=== PATIENT | male | born 1935 | race Caucasian/White ===

== ENCOUNTER 2017-11-12 04:56 | Inpatient (IN) | payer MEDICARE ==
[2017-11-12] VITALS (54 sets, daily range): BP systolic 68–158; BP diastolic 24–80
[~2017-11-12] VITALS: Ht 175.3 cm; Wt 77.6 kg
--- NOTE | 2017-11-12 04:56 | NUR ---
Maintained patent airway on patient. RT at bedside for CPAP inh. Dr Burns at bedside to evaluate patient. HOB elevated. Placed patient on tele monitor and pulse ox.
--- NOTE | 2017-11-12 04:56 | NUR ---
PT BIB RA 39 WITH A C/O SOB. PT ARRIVED ON C-PAP AND WAS TAKEN TO ROOM #13. PT IS TACHYPNEIC AND RESTLESS. PT APPEARS TO BE TRIPODING, ANXIOUS, RHALES NOTED BILATERALLY AND DIMINISHED. 1 SPRAY NITRO GIVEN IN THE FIELD.
--- NOTE | 2017-11-12 04:57 | NUR ---
started a saline lock on the rac g18, blood drawn and sent to lab.
--- NOTE | 2017-11-12 05:10 | NUR ---
CALLING NURSING FLATWORK PRESSER FOR ICU BED, RESP FAILURE.
--- NOTE | 2017-11-12 05:20 | NUR ---
trade embalmer at bedside for cxr.
--- NOTE | 2017-11-12 05:22 | NUR ---
Rt Abel at bedside to draw abg.
[2017-11-12 05:23] LABS: HEMATOCRIT 37 % (39-51); HEMOGLOBIN 12.3 g/dL (13.5-17.5); LYMPHOCYTES # (AUTO) 0.4 /CMM (0.8-4.8); LYMPHOCYTES % (AUTO) 4.1 % (20.0-44.0); MEAN CORPUSCULAR HEMOGLOBIN 31 PG (26.0-33.0); MEAN CORPUSCULAR HGB CONC 33 g/dl (31.0-36.0); MEAN CORPUSCULAR VOLUME 92 fL (80-96); MONOCYTES # (AUTO) 0.6 /CMM (0.1-1.30); MONOCYTES % (AUTO) 6.1 % (2.0-12.0); NEUTROPHILS # (AUTO) 8.3 /CMM (1.8-8.9); NEUTROPHILS % (AUTO) 89.8 % (43.0-81.0); PLATELET COUNT (AUTO) 275 /CMM (150-450); RDW COEFFICIENT OF VARIATION 15.1 (11.5-15.0); WHITE BLOOD COUNT (AUTO) 9.3 K/uL (4.3-11.0)
[2017-11-12] MEDS ORDERED: AMIODARONE 150 MG/3 ML VIAL IV ONE ×4 (05:25→06:00)
--- NOTE | 2017-11-12 05:30 | NUR ---
started patient on Amiodarone 150mg bolus per Dr Burns's orders. Patient noted with afib rvr on monitor.
[2017-11-12 05:32] LABS: ABG BASE EXCESS -0.9 mmol/L; ABG OXYGEN SATURATION 98.8 % (92.0-98.5); ABG PCO2 34.1 mmHg (35.0-45.0); ABG PO2 203.6 mmHg (75.0-100.0); AaDO2 475.3 mmHg; MetHb 0.5 % (0.0-1.5); O2Hb 98.3 % (94.0-97.0); PEEP,BG 10 cm H2O; SITE, ABG Right Brachial; VENT MODE, BG S/T 18 20/10 100%
[2017-11-12 05:35] LABS: CALCIUM, SERUM 9.4 mg/dL (8.5-10.1); CARBON DIOXIDE 29 mmol/L (21-32); CHLORIDE 99 mmol/L (98-107); CREATININE 0.9 mg/dL (0.6-1.3); GLUCOSE 114 mg/dL (74-106); POTASSIUM 4.8 mmol/L (3.5-5.1); SODIUM SERUM 137 mmol/L (136-145); UREA NITROGEN, BLOOD 34 mg/dL (7-18)
[2017-11-12 05:38] LABS: INR 1.07 (0.87-1.13)
[2017-11-12 05:45] LABS: TROPONIN I 3.056 ng/mL (0.00-0.056)
[2017-11-12] MEDS ORDERED: MAGN2400 PO (05:46)
[2017-11-12] MEDS ORDERED: ZINC220T PO (05:46)
[2017-11-12] MEDS ORDERED: CRAN3875 PO (05:46)
[2017-11-12] MEDS ORDERED: DOCU-141 PO (05:46)
[2017-11-12] MEDS ORDERED: CRAN425C6 PO (05:46)
[2017-11-12] MEDS ORDERED: QUET25TA PO (05:46)
[2017-11-12] MEDS ORDERED: PANT40TA2 PO (05:46)
[2017-11-12] MEDS ORDERED: ASPI-605 PO (05:46)
[2017-11-12] MEDS ORDERED: LEVE500T9 PO (05:46)
[2017-11-12] MEDS ORDERED: METO25TA6 PO (05:46)
[2017-11-12] MEDS ORDERED: MULT-1185 PO (05:46)
[2017-11-12] MEDS ORDERED: DEXA1TAB2 PO (05:46)
[2017-11-12] MEDS ORDERED: ASCO500C18 PO (05:46)
[2017-11-12] MEDS ORDERED: TAMS-12 PO (05:46)
[2017-11-12] MEDS ORDERED: MYRBETRIQ ER PO (05:46)
[2017-11-12] MEDS ORDERED: SIMV10TA2 PO (05:46)
[2017-11-12] MEDS ORDERED: TYL2T PO (05:46)
[2017-11-12] MEDS ORDERED: AMLO5TAB2 PO (05:46)
[2017-11-12] MEDS ORDERED: LISI2.5T2 PO (05:46)
--- NOTE | 2017-11-12 05:47 | NUR ---
CALLING REPORT TO RODRIGUE SEYMOUR
[2017-11-12 05:48] LABS: ALANINE AMINOTRANSFERASE 89 U/L (12-78); ALBUMIN 2.4 g/dL (3.4-5.0); ALKALINE PHOSPHATASE 139 U/L (46-116); ASPARTATE AMINOTRANSFERASE 56 U/L (15-37); B-TYPE NATRIURETIC PEPTIDE 5484 PG/ML (0-125); BILIRUBIN,DIRECT 0.2 mg/dL (0.0-0.2); BILIRUBIN,TOTAL 0.6 mg/dL (0.2-1.0); TOTAL PROTEIN, SERUM 6.5 g/dL (6.4-8.2)
--- NOTE | 2017-11-12 05:48 | NUR ---
PT PLACED ON BIPAP RATE 16 IPAP 20 EPAP 10. ABG WAS DONE AND IS INFORMED OF RESULTS. PT SP02 92%. WILL CONT TO MONITOR PT.
[2017-11-12] MEDS ORDERED: ACETAMINOPHEN 650 MG/SUPP.RECT RC ONE ×2 (05:52→06:00)
[2017-11-12] MEDS ORDERED: PIPERACILLIN /TAZOBACTAM 3.375 G VIAL IV ONE (05:52)
--- NOTE | 2017-11-12 05:53 | NUR ---
started patient at this time on amiodarone drip at 1mg/min, noted afib rvr hr 150-170's.
[2017-11-12] MEDS ORDERED: ACETAMINOPHEN 325 MG TABLET PO PRN (06:00)
[2017-11-12] MEDS ORDERED: ASPIRIN 300 MG/SUPP.RECT RC ONE ×2 (06:00→06:11)
[2017-11-12] MEDS ORDERED: IV NS 0.9% 500 ML BAG IV ONE (06:00)
[2017-11-12] MEDS ORDERED: ACETAMINOPHEN 650 MG/SUPP.RECT RC PRN (06:00)
[2017-11-12] MEDS ORDERED: PIPERACILLIN /TAZOBACTAM 3.375 G in IV D5W 50 ML IV ONE (06:00)
[2017-11-12] MEDS ORDERED: NOREPINEPHRINE 8 MG in IV D5W 500 ML IV PRN (06:00)
[2017-11-12] MEDS ORDERED: ONDANSETRON HCL/PF 4 MG/2 ML VIAL IVP PRN (06:00)
--- NOTE | 2017-11-12 06:10 | NUR ---
Transferred patient to ICU bed via als protocol, no incident noted. Patient remained alert and responsive.
[2017-11-12] MEDS ORDERED: IV NS 0.9% 1,000 ML BAG IV PRN ×2 (06:30→07:00)
[2017-11-12] MEDS: ENOXAPARIN SODIUM 30 MG/0.3 ML DISP.SYRIN SQ SCH (06:42)
--- NOTE | 2017-11-12 07:06 | NUR ---
WATER CONSERVATIONIST. RECEIVED THE PT FROM ER VIA RNEY. ROOM 252,FOR RESPIRATORY FAILURE. PT AWAKE, CONFUSED,,AGITATED, RESTRAINT INITIATED FROM ER. BIPAP ON SETTINGS 20/10,RATE 16, FIO2 100%. HOB ELEVATED. BUYER RENTER SHOWING UNCONTROLLED AFIB. AMIODARONE 1MCG/MIN, STARTED FROM ER. LT HAND SKIN TEAR, PICTURE TAKEN. WILL CONTINUE TO MONITOR.
[2017-11-12] MEDS ORDERED: IV NS 0.9% 1,000 ML IV PRN (07:18)
[2017-11-12] MEDS ORDERED: AMIODARONE 900 MG in IV D5W 500 ML IV PRN (07:30)
[2017-11-12] MEDS ORDERED: PHENYLEPHRINE 20 MG in IV D5W 250 ML IV PRN (07:30)
[2017-11-12 07:43] LABS: MAGNESIUM 1.8 mg/dL (1.8-2.4); PHOSPHORUS 3.6 mg/dL (2.5-4.9)
[2017-11-12] MEDS: MULTIVITAMINS,THERAGRAN 1 UDTAB TABLET PO SCH (09:00)
[2017-11-12] MEDS: ZINC SULFATE 220 MG CAPSULE PO SCH (09:00)
[2017-11-12] MEDS: ASCORBIC ACID 500 MG TABLET PO SCH (09:00)
[2017-11-12] MEDS ORDERED: PHENYLEPHRINE 80 MG in IV NS 0.9% 250 ML IV PRN (09:00)
[2017-11-12] MEDS: QUETIAPINE FUMARATE 25 MG TABLET PO SCH ×3 (09:00→16:22)
[2017-11-12] MEDS: DOCUSATE SODIUM 100 MG CAPSULE PO SCH ×2 (09:00→16:22)
[2017-11-12] MEDS ORDERED: LISINOPRIL (5MG) 5 MG TABLET PO SCH (09:00)
[2017-11-12] MEDS ORDERED: AMLODIPINE BESYLATE 5 MG TABLET PO SCH (09:00)
[2017-11-12] MEDS: ASPIRIN 81 MG TAB.CHEW PO SCH (09:00)
[2017-11-12] MEDS ORDERED: METOPROLOL TARTRATE 25 MG TABLET PO SCH (09:00)
[2017-11-12] MEDS: DEXAMETHASONE 1 MG TABLET PO SCH ×2 (09:00→16:22)
[2017-11-12] MEDS ORDERED: ASPIRIN EC 81 MG TABLET.DR PO SCH (09:00)
[2017-11-12] MEDS ORDERED: LEVETIRACETAM SOL (5 ML) 100 MG/ML UDC PO SCH (09:00)
[2017-11-12] MEDS ORDERED: MULTIVITAMIN LIQ 5 ML UDC PO SCH (09:00)
[2017-11-12] MEDS: PANTOPRAZOLE 40 MG VIAL IV SCH (09:08)
[2017-11-12] MEDS: OXCARBAZEPINE 150 MG TABLET PO SCH ×2 (10:59→16:22)
[2017-11-12] MEDS: LEVETIRACETAM SOL (5 ML) 100 MG/ML UDC PO SCH ×2 (10:59→20:59)
[2017-11-12] MEDS: PIPERACILLIN /TAZOBACTAM 3.375 G in IV D5W 50 ML IV SCH ×3 (11:00→23:46)
[2017-11-12] MEDS: DIGOXIN INJ 0.5 MG/2 ML AMPUL IV SCH ×3 (11:01→23:47)
[2017-11-12] MEDS ORDERED: PIPERACILLIN /TAZOBACTAM 2.25 G in IV NS 0.9% 50 ML IV SCH (13:00)
[2017-11-12] MEDS: IPRATROPIUM NEB FS 0.5 MG/2.5 ML AMPUL.NEB NEB SCH ×2 (13:44→19:48)
--- NOTE | 2017-11-12 13:47 | NUR ---
MILLINERY SALESPERSON NOTE 0720: Received patient awake, alert but confused. On Bipap, Sat 100%, will titrate O2. TG PIVs intact. Noted patient with agitation. On SENIOR ART DIRECTOR restraints for episodes of removing lines and Bipap mask. LUE with skin tears, Mepilex in place. S/E by Dr. Gutierrez, aware for the trop, no new order at this time. On Lovenox. 0830: Placed patient on mask 10LPM still 100%, p[laced on 4LPM of O2 via NC tolerated, Sat >93. Will continue to monitor. Nemo, daughter at bedside, updated and aware for the plan of care. Inserted condom cath for I&O monitoring. 1000: With SBP 70's, obtained order from Dr. Schroeder for PICC insertion. for possible use of pressors. Nemo, daughter at bedside given consent. 1100: S/E by ST for risk of aspiration, may give ice chips and water per request when off Bipap. Trop 1200: Followed up with Dr. Fox for PICC, SBP goes 70's at times. Will maintain on 20mcg, awaiting PICC line. Started on 0.5 Amio drip, started @ 0600 for 1mg. 1300: FRANCK PICC done by Dr. Fox, awaiting CXR. 1345: CXR shows PICC FRANCK in good position. Placed Amio drip, Yuriy and IVF in PICC line.
--- NOTE | 2017-11-12 18:55 | NUR ---
DENTAL LABORATORY MANAGER NOTE No any significant changes. Turned off Yuriy @ 1600. Remained on 2LPM of O2 via NC. Kept clean, warm and dry. Needs attended.
--- NOTE | 2017-11-12 20:00 | NUR ---
ICING MACHINE OPERATOR NOTE Received patient sleeping easily awakened.Oriented to name otherwise disoriented/confused. Reoriented.Fall precaution implemented with side rails up x 3 and bed low and locked and alarm on. Kept call light in his hand.Afib controlled 70's-80's per monitor with Amiodarone gtt infusing to FRANCK PICC LINE site intact.Patient on 2L NC on sating 100%and respiration even and unlabored.Remain on NPO status with maintenance ivf infusing.Urine output adequate per FC.No signs of pain noted.Turned and repositioned.
[2017-11-12] MEDS: SIMVASTATIN 10 MG TABLET PO SCH (21:43)
[2017-11-12] MEDS: TAMSULOSIN 0.4 MG CAP.SR.24H PO SCH (21:43)
[2017-11-12] MEDS: IV NS 0.9% 1,000 ML IV PRN (21:56)
[2017-11-13] VITALS (20 sets, daily range): BP systolic 92–135; BP diastolic 44–78
[2017-11-13] MEDS: IPRATROPIUM NEB FS 0.5 MG/2.5 ML AMPUL.NEB NEB SCH ×4 (02:07→19:48)
[2017-11-13] MEDS: PIPERACILLIN /TAZOBACTAM 3.375 G in IV D5W 50 ML IV SCH ×3 (06:00→17:43)
[2017-11-13] MEDS: ENOXAPARIN SODIUM 30 MG/0.3 ML DISP.SYRIN SQ SCH (06:01)
--- NOTE | 2017-11-13 06:30 | NUR ---
Patient awake and alert now oriented x 3.VS stable.Afib controlled 80's.Denies chest pain or sob. AM done.Turned and repositioned.Amiodarone gtt off.Call light within easy reach for safety.All due medications administered.
--- NOTE | 2017-11-13 07:45 | NUR ---
ICU/RN - Initial Notes Received pt in bed awake, alert and oriented x 2-3. No acute distress. Respirations are even and unlabored. On o2 @ 2lpm via nasal cannula. Denies pain or discomfort. PICC line to FRANCK patent and intact with IVF infusing well. Davison catheter intact draining urine to gravity. Safety and comfort measures in place. Will continue to monitor pt closely.
[2017-11-13] MEDS: QUETIAPINE FUMARATE 25 MG TABLET PO SCH ×3 (08:22→16:24)
[2017-11-13] MEDS: DOCUSATE SODIUM 100 MG CAPSULE PO SCH ×2 (08:22→16:24)
[2017-11-13] MEDS: ASPIRIN 81 MG TAB.CHEW PO SCH (08:22)
[2017-11-13] MEDS: DEXAMETHASONE 1 MG TABLET PO SCH ×2 (08:22→16:24)
[2017-11-13] MEDS: ASCORBIC ACID 500 MG TABLET PO SCH (08:22)
[2017-11-13] MEDS: ZINC SULFATE 220 MG CAPSULE PO SCH (08:22)
[2017-11-13] MEDS: PANTOPRAZOLE 40 MG VIAL IV SCH (08:22)
[2017-11-13] MEDS: OXCARBAZEPINE 150 MG TABLET PO SCH ×2 (08:22→16:24)
[2017-11-13] MEDS: MULTIVITAMINS,THERAGRAN 1 UDTAB TABLET PO SCH (08:22)
[2017-11-13] MEDS: LEVETIRACETAM SOL (5 ML) 100 MG/ML UDC PO SCH ×2 (08:23→21:29)
[2017-11-13] MEDS: AMIODARONE HCL 200 MG TABLET PO SCH ×3 (09:47→21:33)
[2017-11-13] MEDS: IV NS 0.9% 1,000 ML IV PRN (09:48)
[2017-11-13] MEDS: DIGOXIN 0.25 MG TABLET PO SCH (12:49)
--- NOTE | 2017-11-13 14:54 | NUR ---
HHN DEFERRED AT THIS TIME. ZERO DISTRESS NOTED. FAMILY REQUESTED NOT TO WAKE PT.
--- NOTE | 2017-11-13 16:45 | NUR ---
ICU/RN - Transfer Pt transferred to [facility] 112-2 per ACLS protocol in stable condition. Pt's daughter at bedside and aware of transfer. Report given to RODRIGUE Guillaume for continuity of care.
--- NOTE | 2017-11-13 16:50 | NUR ---
RN NOTES RECEIVED PT IN ROOM 112-2, FROM ICU , PT IS A/Ox2-3, ON 2 L O2 N/C , RESPIRATION EVEN AND UNLABORED, ON TELE HR IN 90'S A.ALLISON, MARTINEZ DRAINING TO GRAVITY WITH YELLOW , NS AT 75CC/HR RUNNING VIA R UPPER ARM PICC LINE , SITE CDI, SR UP x3, CALL LIGHT WITHIN EASY REACH, BED LOCKED AND IN LOWEST POSITION , CONTINUE TO MONITOR
--- NOTE | 2017-11-13 18:53 | NUR ---
RN NOTES PT STABLE , NO CHANGES NOTED , WILL ENDORSE TO TRANSMISSION SUPERVISOR NURSE FOR NAFISA.
--- NOTE | 2017-11-13 19:30 | NUR ---
[facility]/RN NOTES: Received pt in bed sleeping but easily arousable. alert and oriented x 1-2. No acute distress. on tele monitor afib.Respirations are even and unlabored. On o2 @ 2lpm via n/c sat 97 %. no facial grimaces or moaning noted. Denies pain or discomfort. PICC line to FRANCK patent and intact w/ no s/s of infection/infiltration noted. with IVF infusing well. Davison catheter intact and patent draining urine via gravity. Safety and comfort measures in place. Will continue to monitor pt closely.
[2017-11-13] MEDS: TAMSULOSIN 0.4 MG CAP.SR.24H PO SCH (21:29)
[2017-11-13] MEDS: SIMVASTATIN 10 MG TABLET PO SCH (21:29)
[2017-11-14] VITALS: BP 112/47
[2017-11-14] MEDS: IV NS 0.9% 1,000 ML IV PRN ×2 (00:01→12:52)
[2017-11-14] MEDS ORDERED: PIPERACILLIN /TAZOBACTAM 3.375 G VIAL IV ONE ×2 (00:10→04:54)
[2017-11-14] MEDS: PIPERACILLIN /TAZOBACTAM 3.375 G in IV D5W 50 ML IV SCH ×4 (00:13→17:09)
[2017-11-14] MEDS: IPRATROPIUM NEB FS 0.5 MG/2.5 ML AMPUL.NEB NEB SCH ×4 (01:33→19:47)
[2017-11-14 04:00] VITALS: BP 120/62
[2017-11-14] MEDS: AMIODARONE HCL 200 MG TABLET PO SCH ×3 (05:10→20:50)
[2017-11-14 07:06] LABS: HEMATOCRIT 31 % (39-51); HEMOGLOBIN 10.6 g/dL (13.5-17.5); LYMPHOCYTES # (AUTO) 0.2 /CMM (0.8-4.8); LYMPHOCYTES % (AUTO) 2.3 % (20.0-44.0); MEAN CORPUSCULAR HEMOGLOBIN 31 PG (26.0-33.0); MEAN CORPUSCULAR HGB CONC 34 g/dl (31.0-36.0); MEAN CORPUSCULAR VOLUME 91 fL (80-96); MONOCYTES # (AUTO) 0.3 /CMM (0.1-1.30); MONOCYTES % (AUTO) 4.3 % (2.0-12.0); NEUTROPHILS # (AUTO) 7.4 /CMM (1.8-8.9); NEUTROPHILS % (AUTO) 93.4 % (43.0-81.0); PLATELET COUNT (AUTO) 174 /CMM (150-450); RDW COEFFICIENT OF VARIATION 14.7 (11.5-15.0); RED BLOOD CELL COUNT(AUTO) 3.38 MIL/uL (4.5-6.0); WHITE BLOOD COUNT (AUTO) 7.9 K/uL (4.3-11.0)
[2017-11-14 07:22] LABS: ALANINE AMINOTRANSFERASE 45 U/L (12-78); ALBUMIN 1.6 g/dL (3.4-5.0); ALKALINE PHOSPHATASE 92 U/L (46-116); ASPARTATE AMINOTRANSFERASE 23 U/L (15-37); BILIRUBIN,TOTAL 0.6 mg/dL (0.2-1.0); CALCIUM, SERUM 8.9 mg/dL (8.5-10.1); CARBON DIOXIDE 26 mmol/L (21-32); CHLORIDE 103 mmol/L (98-107); CREATININE 0.7 mg/dL (0.6-1.3); GLUCOSE 122 mg/dL (74-106); MAGNESIUM 1.7 mg/dL (1.8-2.4); PHOSPHORUS 2.4 mg/dL (2.5-4.9); POTASSIUM 4.3 mmol/L (3.5-5.1); SODIUM SERUM 137 mmol/L (136-145); TOTAL PROTEIN, SERUM 5.1 g/dL (6.4-8.2); UREA NITROGEN, BLOOD 24 mg/dL (7-18)
[2017-11-14 07:29] LABS: TROPONIN I 1.727 ng/mL (0.00-0.056)
--- NOTE | 2017-11-14 07:30 | NUR ---
[facility]/RN AM NOTES: PT IN BED, ASLEEP, AROUSES EASLIY TO NAME AND TOUCH, AO X 1-2, ON 2L O2 NC, NOT IN ANY DISTRESS, NO SOB, TELEMETRY READS AFIB HR 78, DENIES ANY CHEST PAINS, FRANCK PICC LINE WITH NS AT 75 ML/HR INFUSING WELL, RT WRIST G 18 FLUSHES WELL, BOTH SITES CLEAR, MARTINEZ CATH IN PLACE, DRAINING ADEQUATE AMOUNT OF YELLOW COLORED URINE, SEE NURSING FLOWSHEET FOR SKIN ISSUES. SAFETY MEASURES IN PLACE, BED LOW LOCKED, WILL CONTINUE TO MONITOR.
--- NOTE | 2017-11-14 07:39 | NUR ---
[facility]/RN NOTES: NO ACUTE CHANGES NOTED DURING THIS SHIFT. REPORT GIVEN TO AM NURSE FOR NAFISA.
[2017-11-14 08:00] VITALS: BP 122/64
--- NOTE | 2017-11-14 08:57 | NUR ---
MS RN NOTES DC TELEMETRY PER DR. MCCARTY
[2017-11-14] MEDS ORDERED: FERROUS SULFATE (325 MG) 325 MG/TAB TABLET PO SCH (09:00)
--- NOTE | 2017-11-14 09:30 | NUR ---
MS RN NOTES DUE MEDS GIVEN
[2017-11-14] MEDS: PANTOPRAZOLE 40 MG VIAL IV SCH (09:46)
[2017-11-14] MEDS: DOCUSATE SODIUM 100 MG CAPSULE PO SCH ×2 (09:47→17:08)
[2017-11-14] MEDS: ASCORBIC ACID 500 MG TABLET PO SCH (09:47)
[2017-11-14] MEDS: ZINC SULFATE 220 MG CAPSULE PO SCH (09:48)
[2017-11-14] MEDS: QUETIAPINE FUMARATE 25 MG TABLET PO SCH ×3 (09:48→17:06)
[2017-11-14] MEDS: LEVETIRACETAM SOL (5 ML) 100 MG/ML UDC PO SCH ×2 (09:48→20:49)
[2017-11-14] MEDS: MULTIVITAMINS,THERAGRAN 1 UDTAB TABLET PO SCH (09:49)
[2017-11-14] MEDS: DEXAMETHASONE 1 MG TABLET PO SCH ×2 (09:49→17:12)
[2017-11-14] MEDS: ASPIRIN 81 MG TAB.CHEW PO SCH (09:49)
[2017-11-14] MEDS: OXCARBAZEPINE 150 MG TABLET PO SCH ×2 (09:49→17:13)
[2017-11-14] MEDS: Magnesium 1GM/D5W 100ML PREMIX 100 ML IV SCH ×2 (11:54→12:48)
--- NOTE | 2017-11-14 11:54 | NUR ---
MS RN NOTES MAGNESIUM BAG #1 STARTED. ZOSYN IV STARTED. SPEECH THERAPIST AT BEDSIDE FOR SWALLOW EVAL. PASSED. CHANGED DIET TO GROUND MOIST AND NECTAR THICKENED LIQUID FOR LUNCH.DAUGHTER AT BEDSIDE.
[2017-11-14] MEDS ORDERED: K PHOS NEUTRAL 250 MG TABLET PO ONE (12:00)
--- NOTE | 2017-11-14 12:04 | NUR ---
WOUND CARE CONSULT WOUND CARE RECEIVED CONSULT FOR LUE DISCOLORATIONS WITH SKIN TEARS. WOUND CARE WILL DEFER TO SURGICAL TEAM FOR CONSULT AND TREATMENT PLANS. PATIENT WITH CURRENT RUCHI AT 14, ALL PRESSURE ULCER PREVENTION MEASURES NOTED TO BE IN PLACE AT THIS TIME.
[2017-11-14] MEDS ORDERED: Z GUARD REMEDY 2 OZ OINT TP PRN (12:30)
--- NOTE | 2017-11-14 12:48 | NUR ---
MS RN NOTES MAGNESIUM BAG #2 STARTED.
[2017-11-14] MEDS: DIGOXIN 0.25 MG TABLET PO SCH (12:49)
[2017-11-14] MEDS: Z GUARD REMEDY 2 OZ OINT TP SCH (12:50)
[2017-11-14] MEDS ORDERED: SOD FERRIC GLUC 125 MG in IV NS 0.9% 100 ML IV SCH (14:00)
--- NOTE | 2017-11-14 14:29 | NUR ---
MS RN NOTES STARTED EDWARDIT IV.
[2017-11-14 16:00] VITALS: BP 125/60
--- NOTE | 2017-11-14 17:09 | NUR ---
MS RN NOTES ZOSYN IV STARTED.
--- NOTE | 2017-11-14 18:42 | NUR ---
MS RN NOTES: PT IN BED RESTING COMFORTABLY, EYES CLOSED, AROUSES TO NAME AND TOUCH, AO X 1-2, ON 2L O2 NC, NOT IN ANY DISTRESS, NO SOB, DENIES ANY CHEST PAINS, FRANCK PICC LINE WITH NS AT 75 ML/HR INFUSING WELL, RT WRIST G 18 FLUSHES WELL, BOTH SITES CLEAR, MARTINEZ CATH IN PLACE, DRAINING ADEQUATE AMOUNT OF YELLOW COLORED URINE, 600 ML OUTPUT. PM CARE DONE, PERFORMED PRESCRIBED WOUND TREATMENT. TURNED AND REPOSITIONED Q 2HOURS. SAFETY MEASURES IN PLACE, BED LOW LOCKED, CALL LIGHT WITHIN REACH, ALL NEEDS MET, NO OTHER SIGNIFICANT CHANGE IN CONDITION. WILL ENDORSE TO NEXT SHIFT FOR NAFISA.
--- NOTE | 2017-11-14 19:30 | NUR ---
MR CABRAL IS COMPLAINING ABOUT HE HAS TO GO "PEE" NOTED THE CATHERE SIZE 14 AND NOTED LITTLE DRAINAGE COMING OUT, IRRIGATED WITH 60 ML NS AND AT 1ST ATTEMPT THE MARTINEZ CATH WAS CLOGGED, SLOWLY HAND IRRIGATED IN ATTEMPT TO UNCLOG, AND WAS SUCCSESSFULL . US CLEAR YELLOW AND MS. CABRAL COMMENTED HE FELT BETTER 500 ML OBTAINED. FED HIM PART OF HIS DINNER SWALLOWS W/O PROBLEM THICKENED LIQUID
[2017-11-14] MEDS: SIMVASTATIN 10 MG TABLET PO SCH (21:40)
[2017-11-14] MEDS: TAMSULOSIN 0.4 MG CAP.SR.24H PO SCH (21:40)
[2017-11-14 21:46] VITALS: BP_SYST 147; BP_SYST 160; BP_DIAS 80
[2017-11-14 22:00] VITALS: BP 147/93
[2017-11-15] MEDS: PIPERACILLIN /TAZOBACTAM 3.375 G in IV D5W 50 ML IV SCH ×3 (00:14→12:13)
[2017-11-15] MEDS: IPRATROPIUM NEB FS 0.5 MG/2.5 ML AMPUL.NEB NEB SCH ×3 (01:48→13:34)
[2017-11-15 02:17] VITALS: BP 133/78
[2017-11-15] MEDS: IV NS 0.9% 1,000 ML IV PRN (03:40)
[2017-11-15 05:13] VITALS: BP 124/68
--- NOTE | 2017-11-15 05:36 | NUR ---
MARTINEZ CATH CONTINUED TO DRAIN CLEAR YELLOW URINE PATIENT WOKE UP EARLIER AND TOLD ME "GOOD JOB, THANK YOU" HE WAS MEANING THAT I WAS ABLE TO GET HIS CATHETER TO DRAIN MR. CABRAL SLEPT THROUGH THE NIGHT SOUNDLY FREQ CHECKING ON HIS MARTINEZ TO BE SURE IT REMAINED CLEAR DRAINING
[2017-11-15] MEDS: AMIODARONE HCL 200 MG TABLET PO SCH ×2 (05:41→12:15)
[2017-11-15 06:48] LABS: ALANINE AMINOTRANSFERASE 39 U/L (12-78); ALBUMIN 1.6 g/dL (3.4-5.0); ALKALINE PHOSPHATASE 90 U/L (46-116); ASPARTATE AMINOTRANSFERASE 15 U/L (15-37); BILIRUBIN,TOTAL 0.6 mg/dL (0.2-1.0); CALCIUM, SERUM 8.6 mg/dL (8.5-10.1); CARBON DIOXIDE 28 mmol/L (21-32); CHLORIDE 104 mmol/L (98-107); CREATININE 0.6 mg/dL (0.6-1.3); EOSINOPHILS % (AUTO) 0.1 % (0.0-6.0); GLUCOSE 97 mg/dL (74-106); HEMATOCRIT 31 % (39-51); HEMOGLOBIN 10.4 g/dL (13.5-17.5); LYMPHOCYTES # (AUTO) 0.3 /CMM (0.8-4.8); LYMPHOCYTES % (AUTO) 3.9 % (20.0-44.0); MAGNESIUM 1.8 mg/dL (1.8-2.4); MEAN CORPUSCULAR HEMOGLOBIN 31 PG (26.0-33.0); MEAN CORPUSCULAR HGB CONC 34 g/dl (31.0-36.0); MEAN CORPUSCULAR VOLUME 92 fL (80-96); MONOCYTES # (AUTO) 0.5 /CMM (0.1-1.30); MONOCYTES % (AUTO) 6.2 % (2.0-12.0); NEUTROPHILS # (AUTO) 6.6 /CMM (1.8-8.9); NEUTROPHILS % (AUTO) 89.8 % (43.0-81.0); PHOSPHORUS 2.2 mg/dL (2.5-4.9); PLATELET COUNT (AUTO) 158 /CMM (150-450); RDW COEFFICIENT OF VARIATION 14.5 (11.5-15.0); RED BLOOD CELL COUNT(AUTO) 3.36 MIL/uL (4.5-6.0); SODIUM SERUM 137 mmol/L (136-145); TOTAL PROTEIN, SERUM 4.8 g/dL (6.4-8.2); UREA NITROGEN, BLOOD 20 mg/dL (7-18); WHITE BLOOD COUNT (AUTO) 7.4 K/uL (4.3-11.0)
[2017-11-15 08:00] VITALS: BP 144/74
--- NOTE | 2017-11-15 08:00 | NUR ---
RN NOTE :INITIAL PT RECEIVED ALERT AWAKE ORIENTED X3. ON OXYGEN 2 LPM VIA NC. NO BREATHING DIFFICULTY NOTED. DENIES CHEST DISCOMFORT. IV CATHETER INTACT, RUNNING WELL WITH IV FLUIDS ORDERED. MARTINEZ CATHETER INTACT, DRAINING WELL WITH GRAVITY. SAFETY MEASURES OBSERVED. CALL LIGHT WITHIN REACH. WILL CONTINUE TO MONITOR.
[2017-11-15] MEDS: LEVETIRACETAM SOL (5 ML) 100 MG/ML UDC PO SCH (08:37)
[2017-11-15] MEDS: PANTOPRAZOLE 40 MG VIAL IV SCH (08:38)
[2017-11-15] MEDS: QUETIAPINE FUMARATE 25 MG TABLET PO SCH ×2 (08:38→12:12)
[2017-11-15] MEDS: ZINC SULFATE 220 MG CAPSULE PO SCH (08:38)
[2017-11-15] MEDS: MULTIVITAMINS,THERAGRAN 1 UDTAB TABLET PO SCH (08:38)
[2017-11-15] MEDS: DEXAMETHASONE 1 MG TABLET PO SCH (08:38)
[2017-11-15] MEDS: ASCORBIC ACID 500 MG TABLET PO SCH (08:38)
[2017-11-15] MEDS: OXCARBAZEPINE 150 MG TABLET PO SCH (08:38)
[2017-11-15] MEDS: ASPIRIN 81 MG TAB.CHEW PO SCH (08:38)
[2017-11-15] MEDS: DOCUSATE SODIUM 100 MG CAPSULE PO SCH (08:38)
[2017-11-15] MEDS: Z GUARD REMEDY 2 OZ OINT TP SCH (11:01)
[2017-11-15] MEDS ORDERED: Digoxin PO (11:18)
[2017-11-15] MEDS ORDERED: AMIO200T7 PO (11:18)
[2017-11-15] MEDS ORDERED: LEVE100S PO (11:32)
[2017-11-15] MEDS ORDERED: PIPE3.379 IV (11:32)
[2017-11-15] MEDS ORDERED: OXCA150T PO (11:32)
[2017-11-15] MEDS: DIGOXIN 0.25 MG TABLET PO SCH (12:13)
[2017-11-15 12:15] VITALS: BP 138/58
--- NOTE | 2017-11-15 14:08 | NUR ---
FAMILY AT BEDSIDE ,PATIENT REFUSED PHOTO TAKEN.
--- NOTE | 2017-11-15 14:27 | NUR ---
RN NOTE:(DISCHARGE) PATIENT DISCHARGE TO [facility] ALERT AWAKE ORIENTED. ON OXYGEN 2LPM VIA NC. DENIES PAIN & DISTRESS. WOUND DRESSING CLEAN & DRY. FAMILY AT BEDSIDE. DISCHARGE INSTRUCTIONS DISCUSSED WITH FAMILY. REPORT GIVEN TO RN PROTOTYPE CARPENTER AT [facility]. LEFT WITH ALL BELONGINGS WITH 2 [employer] MEDICAL INTERPRETER VIA AMBULANCE. Addendum: 11/15/17 at 1430 by REG AYALA RN DISCHARGE WITH PICC LINE & MARTINEZ CATHETER.
== END 2017-11-15 14:15 | DRG 280 ==
LOC: ER 05:00 → ICU 05:51 → TELE1 11-13 16:53 → TELE-TD 11-13 17:37 → MEDSG1 11-14 11:21
PROVIDERS: ADMIT Nurse Practitioner Acute Care; ATTEND Nurse Practitioner Acute Care
PROC: 5A09357 Assistance with Respiratory Ventilation, Less than 24 Consecutive Hours, Continuous Positive Airway Pressure (ICD-10-PCS; principal; 2017-11-12)
PROC: 02HV33Z Insertion of Infusion Device into Superior Vena Cava, Percutaneous Approach (ICD-10-PCS; 2017-11-12)
PROC: B548ZZA Ultrasonography of Superior Vena Cava, Guidance (ICD-10-PCS; 2017-11-12)
DX: I21.A1 Myocardial infarction type 2 (principal); J96.01 Acute respiratory failure with hypoxia; J69.0 Pneumonitis due to inhalation of food and vomit; J15.6 Pneumonia due to other Gram-negative bacteria; G93.41 Metabolic encephalopathy; N17.9 Acute kidney failure, unspecified; C77.8 Secondary and unspecified malignant neoplasm of lymph nodes of multiple regions; C78.7 Secondary malignant neoplasm of liver and intrahepatic bile duct; E87.2 Acidosis; I48.92 Unspecified atrial flutter; J44.0 Chronic obstructive pulmonary disease with (acute) lower respiratory infection; C79.31 Secondary malignant neoplasm of brain; I48.91 Unspecified atrial fibrillation; G40.909 Epilepsy, unspecified, not intractable, without status epilepticus; R13.10 Dysphagia, unspecified; I10 Essential (primary) hypertension; E83.42 Hypomagnesemia; E78.5 Hyperlipidemia, unspecified; I25.10 Atherosclerotic heart disease of native coronary artery without angina pectoris; I25.2 Old myocardial infarction; Z86.73 Personal history of transient ischemic attack (TIA), and cerebral infarction without residual deficits; Z87.891 Personal history of nicotine dependence; N40.0 Benign prostatic hyperplasia without lower urinary tract symptoms; F29 Unspecified psychosis not due to a substance or known physiological condition; Z73.6 Limitation of activities due to disability; C44.91 Basal cell carcinoma of skin, unspecified; D63.8 Anemia in other chronic diseases classified elsewhere; D50.9 Iron deficiency anemia, unspecified; Z98.890 Other specified postprocedural states; S51.812A Laceration without foreign body of left forearm, initial encounter; S61.512A Laceration without foreign body of left wrist, initial encounter; X58.XXXA Exposure to other specified factors, initial encounter; Y93.9 Activity, unspecified; Y92.129 Unspecified place in nursing home as the place of occurrence of the external cause; L98.8 Other specified disorders of the skin and subcutaneous tissue
CPT/HCPCS: 36415; 36569; 36600; 71045-TC; 80048-TC; 80053-TC; 80061-TC; 80076-TC; 82306; 82728-TC; 82746; 82803-TC; 83540-TC; 83605-TC; 83735-TC; 83880; 84100-TC; 84439-TC; 84443-TC; 84484-TC; 85025-TC; 85730-TC; 87040-TC; 87081-TC; 92526; 92611-TC; 93307-TC; 94799-TC; 99082-TC; A4216; A4349; A4606; A6403; C1751; C9113; J0282; J1160; J1650; J1953; J2370; J2543; J2916; J3475; J7030; J7040; J7050; J7060; J8540; Z7610